=== PATIENT | female | born 1975 | race Caucasian/White ===

== ENCOUNTER 2019-01-07 14:45 | Emergency (ER) | payer BC ==
[2019-01-07 15:12] VITALS: O2SAT 97
[2019-01-07] MEDS ORDERED: NORCO 5/325 MG PO ONE (15:28)
[2019-01-07] MEDS ORDERED: NORCO 5/325 MG ONE (15:33)
--- NOTE | 2019-01-07 15:56 | ERPHSYRPT ---
- History of Present Illness Time Seen by Provider: 01/07/19 15:18 Source: patient Exam Limitations: no limitations Patient Subjective Stated Complaint: states yesterday she bent back 3rd digit right hand on edge of couch. pain and swelling to finger Triage Nursing Assessment: ambulated to room per self. skin w/d, color normal. slight swelling noted to finger. good cap refill Physician History: 43-year-old white female arrives with complaint of pain in her right third finger since yesterday. According to patient she hyperextended her right third finger at the PIP joint yesterday she is complaining of pain in the right third finger she states that she does not have full range of motion of the right third finger at the PIP joint she denies any sensory loss. Past medical history is negative. Past surgical history includes hysterectomy, knee scope, gallbladder surgery. Social history positive for tobacco use. . Occurred: yesterday Method of Injury: other (hyperextended right third finger at PIP joint) Quality: constant Severity of Pain-Max: moderate Severity of Pain-Current: moderate Extremities Pain Location: 3rd finger: right Modifying Factors: Improves With: nothing Associated Symptoms: none Allergies/Adverse Reactions: No Known Drug Allergies Allergy (Unverified 01/07/19 14:58) Home Medications: Cetirizine HCl [Zyrtec] 10 mg PO DAILY 01/07/19 [History] Omeprazole 40 mg PO DAILY 01/07/19 [History] Hx Tetanus, Diphtheria Vaccination/Date Given: Yes Hx Influenza Vaccination/Date Given: No Hx Pneumococcal Vaccination/Date Given: No - Review of Systems Constitutional: No Fever, No Chills Eyes: No Symptoms Ears, Nose, & Throat: No Symptoms Respiratory: No Cough, No Dyspnea Cardiac: No Chest Pain, No Edema, No Syncope Abdominal/Gastrointestinal: No Abdominal Pain, No Nausea, No Vomiting, No Diarrhea Genitourinary Symptoms: No Dysuria Musculoskeletal: Other (pain right third finger) Skin: No Rash Neurological: No Dizziness, No Focal Weakness, No Sensory Changes Psychological: No Symptoms Endocrine: No Symptoms All Other Systems: Reviewed and Negative - Past Medical History Pertinent Past Medical History: Yes GI Medical History: GERD Other Medical History: allergies - Past Surgical History Past Surgical History: Yes Gastrointestinal: Cholecystectomy Musculoskeletal: Orthopedic Surgery Female Surgical History: Hysterectomy - Social History Smoking Status: Current every day smoker How long have you smoked: 20 Exposure to second hand smoke: Yes Drug Use: none Patient Lives Alone: No - Female History Hx Now: No - Nursing Vital Signs Nursing Vital Signs: Initial Vital Signs Temperature 98.1 F 01/07/19 15:01 Pulse Rate 88 01/07/19 15:01 Respiratory Rate 16 01/07/19 15:01 Blood Pressure 139/94 01/07/19 15:01 O2 Sat by Pulse Oximetry 97 01/07/19 15:01 Pain Scale Pain Intensity 8 - Physical Exam General Appearance: mild distress, alert Eyes, Ears, Nose, Throat Exam: moist mucous membranes Neck Exam: non-tender, supple Cardiovascular/Respiratory Exam: chest non-tender, normal breath sounds, regular rate/rhythm, no respiratory distress Abdominal Exam: non-tender, No guarding Back Exam: normal inspection, No vertebral tenderness Shoulder Exam: normal inspection, non-tender, no evidence of injury, normal ROM Elbow/Forearm Exam: normal inspection, non-tender, no evidence of injury, normal ROM Wrist Exam: normal inspection, non-tender, no evidence of injury, normal ROM Hand Exam: No normal inspection (right hand remarkable for tenderness and slight edema right third finger overlying the PIP joint, decreased range of motion to the right third finger at PIP joint, good capillary refill right finger sensation intact right fingers) Neuro/Tendon Exam: normal sensation, normal motor functions Mental Status Exam: alert, oriented x 3, cooperative Skin Exam: normal color, warm, dry SpO2 Interpretation: normal (97%) SpO2: 97 - Course Nursing assessment & vital signs reviewed: Yes - Radiology Exams Right Other X-ray Interpretation: Interpreted by me (x-ray right third finger: assessment radiological volar aspect of right third finger PIP joint no fractures or subluxations are noted.) Ordered Tests: Active Orders 24 hr Category Date Time Status Splint STAT Care 01/07/19 15:59 Active FINGER(S) Stat Exams 01/07/19 15:39 Completed Medication Summary Discontinued Medications Generic Name Dose Route Start Last Admin Trade Name Freq PRN Reason Stop Dose Admin Hydrocodone Bitart/Acetaminophen 1 tab 01/07/19 15:28 01/07/19 15:34 Patton 5/325 Mg PO 01/07/19 15:29 1 tab STAT ONE Administration Hydrocodone Bitart/Acetaminophen Confirm 01/07/19 15:33 Patton 5/325 Mg Administered 01/07/19 15:34 Dose 1 tab .ROUTE .STK-MED ONE - Progress Progress: improved Progress Note: 01/07/19 15:54 43-year-old white female arrives with complaint of pain in her right third finger since yesterday she states she hyperextended her right third finger she is complaining of pain overlying the PIP joint anteriorly and on she volar surface, She has decreased range of motion at the right fifth PIP joint she has full range of motion to the DIP joint and the MCP joint. She has good capillary refill to all fingers sensation intact to all fingers. X-ray of the right third finger shows sinus a 3 ossicle on the volar aspect of the right third PIP joint there does not appear to be any fractures or subluxation will go ahead and splint the right third finger give patient Patton for pain. . - Departure Departure Disposition: Home Clinical Impression: sprain right third finger Condition: Fair Critical Care Time: No Referrals: Provider,Unknown [Primary Care Provider] - Instructions: Finger Sprain (DC) Additional Instructions: Return home. Cold packs right third finger 24-48 hours. Patton as prescribed. Followup with your family DrIfrah if symptoms are worse, no better in 48 hours, or persist longer than one week. Return for acute distress or for severe symptoms. Your x-rays have been preliminarily read they will be reread tomorrow you will be contacted if any discrepancies are noted. Prescriptions: Hydrocodone/APAP 5-325 Tab^^^ [Patton 5-325 Tablet^^^] 1 tab PO Q6HPRN PRN #10 tablet MDD 6 PRN Reason: Pain
--- NOTE | 2019-01-07 16:06 | XRAY ---
Indication: Hyperextension injury. Comparison: None 3 views of the right 3rd finger obtained. No bony, articular, or soft tissue abnormalities.
[2019-01-07 16:15] VITALS: BP 127/81; PULSE 84
== END 2019-01-07 16:21 | disposition home or self-care (01) ==
LOC: ED 14:45
DX: S63.614A Unspecified sprain of right ring finger, initial encounter (principal); X50.0XXA Overexertion from strenuous movement or load, initial encounter
CPT/HCPCS: 73140; 99284; A9270-GY

== ENCOUNTER 2023-03-15 19:24 | Emergency (ER) | payer BC ==
[2023-03-15] MEDS ORDERED: MOTRIN 600 MG PO ONE (19:35)
[2023-03-15] MEDS ORDERED: MOTRIN 600 MG ONE (19:38)
--- NOTE | 2023-03-15 19:40 | ERPHSYRPT ---
- History of Present Illness Time Seen by Provider: 03/15/23 19:32 Source: patient Exam Limitations: no limitations Physician History: Pt states she was walking in her house and turned with onset of right knee pain about 24.5 hours ago; denies numbness & tingling of right foor. Allergies/Adverse Reactions: No Known Drug Allergies Allergy (Verified 03/15/23 19:35) Home Medications: Omeprazole 40 mg PO DAILY 01/07/19 [History] Gabapentin 100 mg PO DAILY 03/15/23 [History] Glipizide [Glipizide ER] 10 mg PO BID 03/15/23 [History] Semaglutide [Ozempic] 0.5 mg SQ WEEKLY 03/15/23 [History] Hx Tetanus, Diphtheria Vaccination/Date Given: Yes Hx Influenza Vaccination/Date Given: No Hx Pneumococcal Vaccination/Date Given: No - Review of Systems Musculoskeletal: Joint Pain (right knee) - Past Medical History Pertinent Past Medical History: Yes GI Medical History: GERD Other Medical History: allergies - Past Surgical History Past Surgical History: Yes Gastrointestinal: Cholecystectomy Musculoskeletal: Orthopedic Surgery Female Surgical History: Hysterectomy - Social History Smoking Status: Current every day smoker How long have you smoked: 20 Exposure to second hand smoke: Yes Drug Use: none Patient Lives Alone: No - Female History Hx Now: (unknown - shield abdomen) - Nursing Vital Signs Nursing Vital Signs: Initial Vital Signs Pulse Rate 96 H 03/15/23 19:39 Respiratory Rate 18 03/15/23 19:39 Blood Pressure 167/81 03/15/23 19:39 O2 Sat by Pulse Oximetry 97 03/15/23 19:39 Pain Scale Pain Intensity 8 - Physical Exam General Appearance: alert Hips Exam: right: normal range of motion Knees Exam: right knee: soft tissue tenderness, swelling (mild ), other (decreased flexion of right knee) Ankle Exam: right ankle: normal inspection, normal range of motion, no evidence of injury Foot Exam: right foot: normal inspection, normal range of motion, no evidence of injury Mental Status Exam: alert Skin Exam: warm, dry - Radiology Exams Right Knee X-ray Interpretation: Teleradiologist Report, No Fracture Ordered Tests: Active Orders 24 hr Category Date Time Status Brenton Bandage Application -[facility] STAT Care 03/15/23 20:35 Active Crutches STAT Care 03/15/23 20:34 Active KNEE (3 VIEWS) Stat Exams 03/15/23 19:35 Completed Medication Summary Discontinued Medications Generic Name Dose Route Start Last Admin Trade Name Javier PRN Reason Stop Dose Admin Ibuprofen 600 mg 03/15/23 19:35 03/15/23 19:40 Ibuprofen 600 Mg Tablet PO 03/15/23 19:36 600 mg STAT ONE Administration Ibuprofen Confirm 03/15/23 19:38 Ibuprofen 600 Mg Tablet Administered 03/15/23 19:39 Dose 600 mg .ROUTE .STK-MED ONE - Progress Progress: unchanged Counseled pt/family regarding: diagnosis, need for follow-up, rad results Medical Desision Making - Diagnostic Testing Radiological Interpretation: Teleradiologist Report - Departure Departure Disposition: Home Clinical Impression: Right knee sprain Condition: Stable Critical Care Time: No Referrals: Provider,Unknown [NON-STAFF PHY W/O PRIVILEGES] - Follow up/PCP as directed Instructions: Knee Sprain (DC) Additional Instructions: Use crutches for ambulation for the next 2 weeks. No weight bearing on right foot for the next 4 days. Brenton wrap to right knee for the next 4 days. Elevate right knee above heart level for the next 24 hours. Prescriptions: Ibuprofen [IBUPROFEN 400 MG TABLET] 1 tablet PO Q4H 7 Days #20 tablet
[2023-03-15 19:43] VITALS: RESP 18
--- NOTE | 2023-03-15 20:44 | XRAY ---
CLINICAL HISTORY:right knee paiin COMPARISON:None. TECHNIQUE:X-rays of right knee AP, oblique, and lateral views. FINDINGS: The medial compartment of the femorotibial joint space is reduced. The tibial spines are prominent. Tiny osteophytes were noted at the margins of the tibial plateau. Normal bone mineralization. No sclerotic or destructive bone changes. No definite fracture or dislocation. No joint effusion in the suprapatellar bursa. Soft tissues appear unremarkable. IMPRESSION: No acute osseous abnormality was seen in the right knee. Early osteoarthritic changes were noted. DISCLAIMER:A subtle bone abnormality or fracture may not be readily apparent on x-rays, thus clinical correlation and further imaging including follow up CT, MRI, or follow up x-rays are advised as needed. Electronically Signed by: Angelica Medina MD. (03/15/2023 19:42:12 CD MIXER)
[2023-03-15 21:07] VITALS: BP 162/85; PULSE 92; O2SAT 98
== END 2023-03-15 21:07 | disposition home or self-care (01) ==
LOC: ED 19:24
DX: S83.91XA Sprain of unspecified site of right knee, initial encounter (principal); X50.0XXA Overexertion from strenuous movement or load, initial encounter; Y93.01 Activity, walking, marching and hiking; Z79.84 Long term (current) use of oral hypoglycemic drugs; Z79.85 Long-term (current) use of injectable non-insulin antidiabetic drugs; Z79.899 Other long term (current) drug therapy; Z72.0 Tobacco use
CPT/HCPCS: 73562; 99283; A9270-GY